=== PATIENT | male | born 1980 | race Hispanic/Latino ===

== ENCOUNTER 2016-04-25 14:54 | Observation (INO) | payer MEDICAID ==
[~2016-04-25] VITALS: Ht 180.3 cm; Wt 104.2 kg
[2016-04-25] MEDS ORDERED: GLUCAGON 1 MG VIAL IM PRN (19:55)
[2016-04-25] MEDS ORDERED: ONDANSETRON 4 MG VIAL IV PRN (19:55)
[2016-04-25] MEDS ORDERED: SALINE FLUSH 10 ML FLUSH PRN (19:55)
[2016-04-25] MEDS ORDERED: DEXTROSE 50% SYRINGE 50 ML IV PRN (19:55)
[2016-04-25 22:01] VITALS: BP_SYST 120; RESP 18; TEMP 97.6
[2016-04-25 22:04] VITALS: Ht 180.3 cm; Wt 104.2 kg
[2016-04-25] MEDS: SODIUM CHLORIDE 0.9% 1,000 ML IV SCH (22:57)
[2016-04-25] MEDS: SALINE FLUSH 10 ML FLUSH SCH (22:57)
[2016-04-26 00:32] VITALS: RESP 18
[2016-04-26 04:09] VITALS: BP_SYST 138; RESP 16; TEMP 98
[2016-04-26] MEDS ORDERED: SODIUM CHLORIDE 0.9% FLUSH BAG 500 ML IV SCH (06:00)
[2016-04-26] MEDS: SODIUM CHLORIDE 0.9% 1,000 ML IV SCH (06:41)
[2016-04-26 07:28] VITALS: BP_SYST 139; RESP 16; TEMP 98.2
[2016-04-26] MEDS: SALINE FLUSH 10 ML FLUSH SCH (08:00)
[2016-04-26 11:34] VITALS: BP_SYST 129; RESP 16; TEMP 97.8
[2016-04-26 12:25] VITALS: BP_SYST 129; RESP 16; TEMP 97.8
== END 2016-04-26 14:10 | disposition home or self-care (01) ==
LOC: ENRESERVDT → CANRESERV → ENRESERV → ENRESERVTM → ER 14:54 → EMR 19:55 → ENPENDDIS 19:55 → 4NT 21:38
PROVIDERS: ADMIT Internal Medicine; ATTEND Internal Medicine
DX: E09.649 Drug or chemical induced diabetes mellitus with hypoglycemia without coma (principal); T38.3X5A Adverse effect of insulin and oral hypoglycemic [antidiabetic] drugs, initial encounter; Z79.84 Long term (current) use of oral hypoglycemic drugs; K21.9 Gastro-esophageal reflux disease without esophagitis; I10 Essential (primary) hypertension; E78.00 Pure hypercholesterolemia, unspecified; I50.22 Chronic systolic (congestive) heart failure; M10.9 Gout, unspecified; E78.5 Hyperlipidemia, unspecified
CPT/HCPCS: 36415; 70450; 71010; 80053; 80307; 81003; 82553; 82947; 84484; 85025; 87040; 87207; 94799; 99219; 99238